=== PATIENT | male | born 1945 | race Caucasian/White ===

== ENCOUNTER 2016-04-23 13:17 | Emergency (ER) | payer OTHER ==
[~2016-04-23] VITALS: Ht 182.9 cm; Wt 120.2 kg
[2016-04-23 13:51] VITALS: BP 107/64
--- NOTE | 2016-04-23 14:18 | ED HAND/WRIST INJURY COMPLAINT ---
History of Present Illness General Chief Complaint: Hand or Wrist Injury Stated Complaint: CUT LT PALM Source: patient Exam Limitations: no limitations Allergies Coded Allergies: No Known Allergies (04/23/16) Triage Note: TRIAGE: 70 Y/O MALE PRESENTS C/O LACERATION TO PALMAR SURFACE OF LEFT HAND X30 MINUTES PRIOR TO ARRIVAL. ACTIVE BLEEDING REMAINS CONSTANT TO 2 INCH LAC. DRESSING APPLIED. PATIENT INSTRUCTED TO HOLD PRESSURE. PATIENT DIRECTLY TO ROOM 21 AT THIS TIME. Triage Nurses Notes Reviewed? yes HPI: This patient is a 70-year-old male who presented to the emergency department today for evaluation of a laceration to his left palm. The patient reported that he was trying to cut something on his cut a board with a knife that was still partially frozen when the knife slipped and cut his hand. He is denying any pain, numbness, or tingling. He denied any decreased range of motion of his hand. The patient is refusing any medication for pain at this time. He is unsure of his last tetanus immunization. (GEE BLACKMAN PA-C) Vital Signs & Intake/Output Vital Signs & Intake/Output Vital Signs Date Time Temp Pulse Resp B/P Pulse O2 O2 Flow FiO2 Ox Delivery Rate 04/23 1351 96.8 55 18 107/64 97 Room Air Room Air ED Intake and Output 04/24 0000 04/23 1200 Intake Total Output Total Balance Patient 265 lb Weight Past History Travel History Traveled to [place] past 21 day No Medical History Any Pertinent Medical History? see below for history Cardiovascular: hypertension, hyperlipidemia, [place] 2009 Endocrine: diabetes Tetanus Vaccine: 04/23/16 Surgical History Surgical History: non-contributory Psychosocial History What is your primary language Bulgarian Tobacco Use: Never used ETOH Use: occasional use Illicit Drug Use: denies illicit drug use Family History Hx Contributory? No (GEE BLACKMAN PA-C) Review of Systems Review of Systems Constitutional: Reports: no symptoms. EENTM: Reports: no symptoms. Respiratory: Reports: no symptoms. Cardiovascular: Reports: no symptoms. GI: Reports: no symptoms. Musculoskeletal: Reports: no symptoms. Skin: Reports: see HPI. Neurological/Psychological: Reports: no symptoms. All Other Systems: Reviewed and Negative (GEE BLACKMAN PA-C) Physical Exam Physical Exam Hand Left: APPROXIMATELY 4 CM IN LENGTH LACERATION TO THE PALM OF THE LEFT HAND WITH ACTIVE BLEEDING. nO SURROUNDING ERYTHEMA OR EDEMA. nO TENDON INJURY. nO RETAINED FOREIGN BODY IN THE WOUND. nONTENDER TO PALPATION AROUND THE WOUND SITE. fULL RANGE OF MOTION OF THE DIGITS. rADIAL PULSE 2+ AND STRONG. cAPILLARY REFILL LESS THAN 2 SECONDS. Hand Right: normal inspection, normal range of motion Comments: Well-developed well-nourished person in no acute distress HEENT: Head normocephalic, moist mucous membranes Neck: Supple, no lymphadenopathy Back: Normal gait Respiratory: No respiratory distress. Speaking in full sentences Extremities: No edema, full range of motion Neuro: Alert and oriented x3 Psych: Mood affect normal, normal memory normal judgment. Skin: Warm and dry, no rash on exposed skin (GEE BLACKMAN PA-C) Progress Differential Diagnosis: abscess, cellulitis, LACERATION, SKIN AVULSION, SKIN TEAR Plan of Care: Current Medications Sig/Harshad Start time Last Medication Dose Stop Time Status Admin Tetanus/Diphtheria 0.5 ML ONCE ONE 04/23 1415 CAN Toxoids Adsorbed 04/23 1416 (Decavac) Departure Departure Disposition: HOME OR SELF CARE Condition: Stable Clinical Impression Primary Impression: Laceration Referrals: PANCHO BOYCE,KAVON Polo (PCP/Family) Additional Instructions: PLEASE KEEP THE WOUND SITE CLEAN AND DRY. YUO MAY APPLY BACITRACIN TO THE WOUND ONCE DAILY. RETURN IN 10-12 DAYS FOR A WOUND CHECK AND SUTURE REMOVAL. RETURN SOONER FOR ANY WORSENING SYMPTOMS, SPREADING OF REDDNESS AROUND THE WOUND SITE, PUS DRAINAGE FROM THE WOUND, FEVER, CHILLS, OR FOR ANY OTHER CONCERNS. Departure Forms: Customer Survey General Discharge Information (GEE BLACKMAN PA-C) PA/COLLECTION SYSTEMS FOREMAN Co-Sign Statement Statement: ED Attending supervision documentation- x I saw and evaluated the patient. I have also reviewed all the pertinent lab results and diagnostic results. I agree with the findings and the plan of care as documented in the PA's/COLLECTION SYSTEMS FOREMAN's documentation. [] I have reviewed the ED Record and agree with the PA's/COLLECTION SYSTEMS FOREMAN's documentation. [] Additions or exceptions (if any) to the PAs/COLLECTION SYSTEMS FOREMAN's note and plan are summarized below: [] (ROXANE BOYCE,YOSHI) Procedures Laceration/Wound Repair Laceration/Wound Repair: Wound Location: upper extremity (LEFT HAND) Wound's Depth, Shape: linear, subcutaneous Wound Length (cm): 4 Wound Explored: irrigated extensively Irrigated w/ Saline (ccs): 800 Betadine Prep? Yes Anesthesia: 1% lidocaine Volume Anesthetic (ccs): 4 Wound Repaired With: sutures Suture Size/Type: 3:0 Number of Sutures: 10 Layer Closure? No Sterile Dressing Applied: Yes Splint Applied? No Sling Applied? No Tetanus Status: not up to date Progress: NATAN STUDENT ASSISTED IN LACERATION REPAIR. PATIENT TOLERATED THE PROCEDURE WELL. (YEHUDA COTTRELL,GEE)
== END 2016-04-23 15:09 ==
LOC: ERH 13:17
DX: S61.412A Laceration without foreign body of left hand, initial encounter (principal); W26.0XXA Contact with knife, initial encounter
CPT/HCPCS: 90471; 90714

== ENCOUNTER 2016-05-04 13:49 | Emergency (ER) | payer OTHER ==
[2016-05-04 14:07] VITALS: BP 118/73
--- NOTE | 2016-05-04 14:38 | ED UPPER/LOWER EXTREMITY COMPL ---
History of Present Illness General Chief Complaint: Suture Removal/Wound Recheck Stated Complaint: SUTURE REMOVAL Source: patient Exam Limitations: no limitations Vital Signs & Intake/Output Vital Signs & Intake/Output Vital Signs Date Time Temp Pulse Resp B/P Pulse O2 O2 Flow FiO2 Ox Delivery Rate 05/04 1407 98.0 98 20 118/73 98 Room Air Allergies Coded Allergies: No Known Allergies (04/23/16) Triage Note: PT PRESENTS TO ER FOR SUTURE REMOVAL TO LEFT HAND. Triage Nurses Notes Reviewed? yes Onset: Abrupt Duration: day(s):, constant Timing: recent history Severity: mild, moderate No Modifying Factors: none HPI: 70-year-old male comes in for suture removal to left hand. No redness swelling discharge fever does. Denies any other associated symptoms. Denies any pain. (CONOR ONEAL) Past History Travel History Traveled to [place] past 21 day No Medical History Any Pertinent Medical History? see below for history Cardiovascular: hypertension, hyperlipidemia, [place] 2008 Endocrine: diabetes Tetanus Vaccine: 04/23/16 Surgical History Surgical History: non-contributory Psychosocial History What is your primary language Iranian Tobacco Use: Never used Family History Hx Contributory? No (CONOR ONEAL) Review of Systems Review of Systems Constitutional: Reports: no symptoms. EENTM: Reports: no symptoms. Respiratory: Reports: no symptoms. Cardiovascular: Reports: no symptoms. Gastrointestinal/Abdominal: Reports: no symptoms. Genitourinary: Reports: no symptoms. Musculoskeletal: Reports: no symptoms. Skin: Reports: see HPI. Neurological/Psychological: Reports: no symptoms. Hematologic/Endocrine: Reports: no symptoms. Immunological: Reports: no symptoms. All Other Systems: Reviewed and Negative (CONOR ONEAL) Physical Exam Physical Exam General Appearance: well developed/nourished Head: atraumatic Eyes: Bilateral: normal appearance. Ears, Nose, Throat: normal ENT inspection, hearing grossly normal Neck: normal inspection Cardiovascular/Respiratory: no respiratory distress Back: normal inspection Hand Left: sutures placed,no erythema, no discharge, all stitches removed Neurologic/Tendon: normal sensation, normal motor functions, normal tendon functions, responds to pain, no evidence tendon injury, no pulse deficit Skin: intact, normal color, warm/dry Lymphatic: no anterior cervical lizzy (CONOR ONEAL) Progress Differential Diagnosis: cellulitis, contusion, dislocation, DVT, gout, septic arthritis, sprain Plan of Care: 05/04/2016 5:16:40 PM No evidence of any type of infection. Follow-up with primary care doctor. Return if any concerns worsening symptoms. (CONOR ONEAL) Departure Departure Disposition: HOME OR SELF CARE Condition: Stable Clinical Impression Primary Impression: Visit for suture removal Referrals: PANCHO BOYCE,KAVON Polo (PCP/Family) Additional Instructions: Bacitracin for 5 days. Return if any other concerns worsening symptoms. Departure Forms: Customer Survey General Discharge Information (CONOR ONEAL) PA/MANAGER VEHICLE Co-Sign Statement Statement: ED Attending supervision documentation- [x] I saw and evaluated the patient. I have also reviewed all the pertinent lab results and diagnostic results. I agree with the findings and the plan of care as documented in the PA's/MANAGER VEHICLE's documentation. [] I have reviewed the ED Record and agree with the PA's/MANAGER VEHICLE's documentation. [] Additions or exceptions (if any) to the PAs/MANAGER VEHICLE's note and plan are summarized below: [] (ROMMEL WARNER DO)
== END 2016-05-04 14:41 ==
LOC: ERH 13:49
DX: S61.412D Laceration without foreign body of left hand, subsequent encounter (principal)
CPT/HCPCS: 99281